=== PATIENT | female | born 1980 | race African-American/Black ===

== ENCOUNTER 2019-03-23 16:34 | Emergency (ER) | payer MEDICAID ==
[2019-03-23] MEDS ORDERED: NA CHLORIDE 0.9% 1,000 ML ONE (17:06)
[2019-03-23 17:08] LABS: Urine Blood 2+ (NEG); Urine Glucose NEGATIVE (NEG); Urine Protein 2+ (NEG); Urine Specific Gravity 1.025 (1.005-1.030); Urine pH 5.5 (5.0-7.0)
--- NOTE | 2019-03-23 17:13 | RAD REPORT ---
EXAM DESCRIPTION: RAD - Chest Single View - 03/23/2019 5:06 pm CLINICAL HISTORY: Cough, shortness of breath COMPARISON: None. TECHNIQUE: AP portable chest image was obtained 1706 hours . FINDINGS: Lungs are clear. Heart and vasculature are normal. No measurable pleural effusion and no p neumothorax. No acute bony abnormality seen. No acute aortic findings suspected. IMPRESSION: No acute cardiopulmonary process.
[2019-03-23 17:32] LABS: Absolute Lymphocytes (CBC) 0.5 K/uL (0.7-4.9); Basophils % 0.3 % (0-1.3); Hematocrit 35.6 % (36.0-45.0); Lymphocytes % 2.8 % (15.3-44.8); MPV 8.7 fL (7.6-11.3); RBC Red Blood Cell Count 3.84 M/uL (3.86-4.86)
[2019-03-23 17:36] LABS: Protime INR 1.7
[2019-03-23 17:57] LABS: ALT/SGPT 32 U/L (12-78); AST/SGOT 20 U/L (15-37); Albumin 3.6 g/dL (3.4-5.0); Alkaline Phosphatase 81 U/L (45-117); BUN Blood Urea Nitrogen 14 mg/dL (7-18); Bicarbonate 22 mmol/L (21-32); Bilirubin Direct 0.5 mg/dL (0-0.2); Bilirubin Total 1.3 mg/dL (0.2-1.0); Glucose Level 99 mg/dL (74-106); Magnesium 2.1 mg/dL (1.8-2.4); NT PRO-BNP 20 pg/mL (<125); Potassium 3.4 mmol/L (3.5-5.1); Protein, Total 8.5 g/dL (6.4-8.2); Sodium Level 139 mmol/L (136-145); Troponin (Emerg Dept Use Only) < 0.02 ng/mL (0.0-0.045)
[2019-03-23 18:02] LABS: Blood Morphology Comment NOT SEEN (NOT SEEN); Platelet Estimate ADEQ; Urine White Blood Cell Casts OK
--- NOTE | 2019-03-23 18:47 | RAD REPORT ---
EXAM DESCRIPTION: CT - Soft Tissue Neck W/Contr - 03/23/2019 6:36 pm CLINICAL HISTORY: Syncope, trauma, swelling left neck and chin COMPARISON: None TECHNIQUE: During dynamic enhancement using 100 milliliters nonionic IV contrast, axial 5 millimeter thick images of the neck were obtained. All CT scans are performed using dose optimization technique as appropriate and may include automated exposure control or mA/KV adjustment according to patient size. FINDINGS: Intracranial portion the examination is unremarkable. No globe or orbital content abnormal ity. Mastoid air cells and paranasal sinuses are clear. No pharyngeal mucosal mass or asymmetry. Parapharyngeal fat is normal. No soft palate, tonsil or tong ue base abnormality seen. Epiglottis and laryngeal structures are normal. Thyroid, submandibular and parotid gland tissues are unremarkable. Edematous/ inflammatory stranding is seen in the submental fatty tissues. In the left-sided floor the mouth musculature there are 2 low-density collections present. The more inferior collection is 17 x 6 mm in size. The more superior and central collection is 19 x 7 mm. Neither collection is closely ap proximated to the mandible. Small abscesses are most likely. There are several reactive lymph nodes i n this area. Elsewhere in the neck no significant lymphadenopathy. No additional mass seen. No acute or destructiv e bone process. There is a lucency along the posterior left molars of the mandible. Dental decay is e vident along the surface of these teeth. The floor the mouth findings are relatively distant from thi s area but could potentially be inferiorly tracking infections. IMPRESSION: Two abscesses are seen in the soft tissues along the left-side floor the mouth as detail ed. Dental decay is seen in the posterior left-side mandible and associated teeth. There is not specific direct communication from the dental decay to the abscesses though inferiorly directed inflammatory t racks would be possible.
[2019-03-23] MEDS ORDERED: dexAMETHasone 10 MG/ML VIAL ONE (19:02)
[2019-03-23] MEDS ORDERED: CEFTRIAXONE/SWI 1gm 1 GM/10 ML SYR ONE (19:02)
[2019-03-23] MEDS ORDERED: NS KCL 20MEQ 1,000 ML IV ONE (19:02)
[2019-03-23] MEDS ORDERED: CLINDAMYCIN 900MG/D5W 900 MG/50 ML IVPB IV ONE (19:02)
--- NOTE | 2019-03-23 19:53 | ER ---
Nurse's Notes [facility] Name: Suzy Barrera Age: 38 yrs Sex: Female : 1980 Arrival Date: 03/23/2019 Time: 16:42 Bed 19 Private MD: Diagnosis: Dental caries;Cutaneous abscess of face-submental;Fever, unspecified;Elevated white blood cell count Presentation: 03/23 16:42 Presenting complaint: EMS states: EMS toned out for possible anaphylaxis, pt had ph syncopal episode witnessed by neighbors who reported that pt had swelling to neck/chin area, pt responsive upon EMS arrival, reported that chin/neck swelling was related to a dental problem, seen by dentist Friday and prescribed Clindamycin but has not taken a dose, BGL 45, pt states that she has not eaten in a few days because of dental pain, denies hx of allergic reaction, also denies fever or SOB. Transition of care: patient was not received from another setting of care. Onset of symptoms was March 23, 2019. Risk Assessment: Do you want to hurt yourself or someone else? Patient reports no desire to harm self or others. Initial Sepsis Screen: Does the patient meet any 2 criteria? No. Patient's initial sepsis screen is negative. Does the patient have a suspected source of infection? No. Patient's initial sepsis screen is negative. Care prior to arrival: Glucose check: 45. 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 - Social history:: Smoking status: Patient/guardian denies using tobacco. - Ebola Screening: : No symptoms or risks identified at this time. Screenin:16 Abuse screen: Denies threats or abuse. Denies injuries from another. Nutritional ph screening: No deficits noted. Tuberculosis screening: No symptoms or risk factors identified. Fall Risk Fall in past 12 months (25 points). No secondary diagnosis (0 pts). IV access (20 points). Ambulatory Aid- None/Bed Rest/Nurse Assist (0 pts). Gait- Weak (10 pts.). Mental Status- Overestimates/Forgets Limitations (15 pts.). Total Eid Fall Scale indicates High Risk Score (45 or more points). Fall prevention measures have been instituted. Side Rails Up X 2 Placed Close to Nursing Station As available patient and family educated on Fall Prevention Program and Strategies. Assessment: 17:00 General: Appears in no apparent distress. uncomfortable, slender, well groomed, ph Behavior is calm, cooperative, appropriate for age. Pain: Complains of pain in mouth. Neuro: Level of Consciousness is awake, alert, obeys commands, Oriented to person, place, time, situation, Reports dizziness, a syncopal episode Denies blurred vision headache. Cardiovascular: Reports fatigue, lightheadedness, syncope, Denies chest pain, nausea, shortness of breath, Rhythm is sinus tachycardia. Respiratory: Airway is patent Respiratory effort is even, unlabored, Respiratory pattern is regular, symmetrical. GI: Patient currently denies abdominal pain, diarrhea, nausea, vomiting. EENT: Poor dentition noted. Derm: Skin is intact, Skin is pink, warm \T\ dry. Musculoskeletal: Swelling present in submental area. 18:00 Reassessment: Patient appears in no apparent distress at this time. Patient and/or ph family updated on plan of care and expected duration. Pain level reassessed. Patient is alert, oriented x 3, equal unlabored respirations, skin warm/dry/pink. 19:15 Reassessment: Patient appears in no apparent distress at this time. Patient and/or jb4 family updated on plan of care and expected duration. Pain level reassessed. Patient is alert, oriented x 3, equal unlabored respirations, skin warm/dry/pink. General: Appears in no apparent distress. comfortable, Behavior is calm, cooperative, appropriate for age. Neuro: Level of Consciousness is awake, alert, obeys commands, Oriented to person, place, time, situation. Cardiovascular: Patient's skin is warm and dry. Respiratory: Airway is patent Respiratory effort is even, unlabored, Respiratory pattern is regular, symmetrical. GI: No signs and/or symptoms were reported involving the gastrointestinal system. EENT: Poor dentition noted. Derm: Skin is intact, Skin is dry, Skin is normal, Skin temperature is warm. Musculoskeletal: Swelling present in chin, right jaw and left jaw. 20:15 Reassessment: Patient appears in no apparent distress at this time. Patient and/or jb4 family updated on plan of care and expected duration. Pain level reassessed. Patient is alert, oriented x 3, equal unlabored respirations, skin warm/dry/pink. Consent form for transfer signed. 21:49 Reassessment: Patient appears in no apparent distress at this time. Patient and/or jb4 family updated on plan of care and expected duration. Pain level reassessed. Patient is alert, oriented x 3, equal unlabored respirations, skin warm/dry/pink. Pt transported out of ED with EMS, belongings with pt, pt verbalized understanding for need for transfer, IV fluid discontinued per Dr. Rojas. Vital Signs: 16:48 BP 121 / 69; Pulse 113; Resp 20; Temp 99.7(O); Pulse Ox 98% on R/A; Weight 65.77 kg; ph 18:00 BP 108 / 64; Pulse 107; Resp 18; Pulse Ox 98% on R/A; ph 20:15 BP 107 / 55; Pulse 90; Resp 19; Temp 99.3(O); Pulse Ox 100% on R/A; jb4 21:45 BP 107 / 68; Pulse 89; Resp 23; Pulse Ox 98% on R/A; jb4 ED Course: 16:42 Patient arrived in ED. ph 16:44 Thien Rojas MD is Attending Physician. imelda 16:48 Triage completed. ph 16:54 Arm band placed on. ph 17:00 Tameka Islas, RN is Primary Nurse. ph 17:00 Patient has correct armband on for positive identification. Placed in gown. Bed in low ph position. Call light in reach. Side rails up X2. monitoring tech on. Pulse ox on. NIBP on. Door closed. Noise minimized. Warm blanket given. Head of bed elevated. 17:07 XRAY Chest (1 view) In Process Unspecified. EDMS 17:27 Initial lab(s) drawn, by me, sent to lab. Inserted saline lock: 20 gauge in left em1 antecubital area, using aseptic technique. Blood collected. 18:35 CT Soft Tissue Neck W/contr In Process Unspecified. EDMS 19:27 Primary Nurse role handed off by Tameka Islas, RN jb4 19:27 Markos Phillips, RN is Primary Nurse. jb4 21:52 No provider procedures requiring assistance completed. Patient transferred, IV remains jb4 in place. Administered Medications: 17:50 Drug: NS 0.9% 1000 ml Route: IV; Rate: 1 bolus; Site: left antecubital; ph 20:00 Follow up: Response: No adverse reaction; IV Status: Completed infusion; IV Intake: jb4 1000ml 19:15 Drug: Decadron - Dexamethasone 10 mg Route: IVP; Site: left antecubital; ph 20:18 Follow up: Response: No adverse reaction jb4 19:17 Drug: Rocephin 1 grams Route: IV; Rate: per protocol; Site: left antecubital; ph 19:19 Follow up: Response: No adverse reaction; IV Status: Completed infusion; IV Intake: [id number] 19:20 Drug: Clindamycin 900 mg Route: IVPB; Infused Over: 30 mins; Site: left antecubital; ph 19:50 Follow up: Response: No adverse reaction; IV Status: Completed infusion; IV Intake: [id number] 19:24 Drug: NS 0.9% with KCl 20 mEq/L 1000 ml Route: IV; Rate: 125 ml/hr; Site: left ph antecubital; 21:53 Follow up: Response: No adverse reaction; IV Status: Order to discontinue infusion jb4 Point of Care Testing: Blood Glucose: 16:48 Blood Glucose: 85 mg/dL; ph Ranges: Intake: 19:19 IV: 10ml; Total: 10ml. jb4 19:50 IV: 50ml; Total: 60ml. jb4 20:00 IV: 1000ml; Total: 1060ml. jb4 Outcome: 19:51 ER care complete, transfer ordered by MD. segura 21:52 Transferred by ground EMS to [facility], Transfer form jb4 completed. 21:52 Condition: stable 21:52 Discharge instructions given to patient, Instructed on the need for transfer, Demonstrated understanding of instructions. 21:54 Patient left the ED. jb4 Signatures: Dispatcher [employer] EDThien Arambula MD MD cha Martinez, Eric em1 Tameka Islas RN RN Markos Escalona RN RN jb4 Corrections: (The following items were deleted from the chart) 20:18 07:50 NS 0.9% 1000 ml IV at 1 bolus in left antecubital ph ph
--- NOTE | 2019-03-23 19:53 | EDPHYS ---
Physician Documentation [facility] Name: Suzy Barrera Age: 38 yrs Sex: Female : 1980 Arrival Date: 03/23/2019 Time: 16:42 Bed 19 Private MD: ED Physician Thien Rojas HPI: 03/23 18:03 This 38 yrs old Black Female presents to ER via EMS with complaints of Syncope. imelda 18:03 The patient has experienced near-syncope. Onset: The symptoms/episode began/occurred imelda just prior to arrival. 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 - Social history:: Smoking status: Patient/guardian denies using tobacco. - Ebola Screening: : No symptoms or risks identified at this time. ROS: 18:05 Constitutional: Negative for fever, chills, and weight loss, Eyes: Negative for injury, imelda pain, redness, and discharge, Neck: Negative for injury, pain, and swelling, Cardiovascular: Negative for chest pain, palpitations, and edema, Respiratory: Negative for shortness of breath, cough, wheezing, and pleuritic chest pain, Abdomen/GI: Negative for abdominal pain, nausea, vomiting, diarrhea, and constipation, Back: Negative for injury and pain, : Negative for injury, bleeding, discharge, and swelling, MS/Extremity: Negative for injury and deformity, Skin: Negative for injury, rash, and discoloration, Psych: Negative for depression, anxiety, suicide ideation, homicidal ideation, and hallucinations, Allergy/Immunology: Negative for hives, rash, and allergies, Endocrine: Negative for neck swelling, polydipsia, polyuria, polyphagia, and marked weight changes. 18:05 Constitutional: Positive for body aches, fever. 18:05 ENT: Positive for sore throat, Teeth pain 18:05 Neck: Positive for mass, pain with movement, pain at rest, swelling, tenderness. 18:05 Neuro: Positive for near syncope, weakness. Exam: 18:05 Constitutional: This is a well developed, well nourished patient who is awake, alert, imelda and in no acute distress. Head/Face: Normocephalic, atraumatic. Eyes: Pupils equal round and reactive to light, extra-ocular motions intact. Lids and lashes normal. Conjunctiva and sclera are non-icteric and not injected. Cornea within normal limits. Periorbital areas with no swelling, redness, or edema. Neck: Trachea midline, no thyromegaly or masses palpated, and no cervical lymphadenopathy. Supple, full range of motion without nuchal rigidity, or vertebral point tenderness. No Meningismus. Chest/axilla: Normal chest wall appearance and motion. Nontender with no deformity. No lesions are appreciated. Cardiovascular: Regular rate and rhythm with a normal S1 and S2. No gallops, murmurs, or rubs. Normal PMI, no JVD. No pulse deficits. Respiratory: Lungs have equal breath sounds bilaterally, clear to auscultation and percussion. No rales, rhonchi or wheezes noted. No increased work of breathing, no retractions or nasal flaring. Abdomen/GI: Soft, non-tender, with normal bowel sounds. No distension or tympany. No guarding or rebound. No evidence of tenderness throughout. Back: No spinal tenderness. No costovertebral tenderness. Full range of motion. Skin: Warm, dry with normal turgor. Normal color with no rashes, no lesions, and no evidence of cellulitis. MS/ Extremity: Pulses equal, no cyanosis. Neurovascular intact. Full, normal range of motion. Neuro: Awake and alert, GCS 15, oriented to person, place, time, and situation. Cranial nerves II-XII grossly intact. Motor strength 5/5 in all extremities. Sensory grossly intact. Cerebellar exam normal. Normal gait. Psych: Awake, alert, with orientation to person, place and time. Behavior, mood, and affect are within normal limits. 18:05 ENT: Mouth: Oral mucosa: moist, Gums: noted to have cellulitis, reddened, Tongue: is normal, abscess, is not appreciated, Posterior pharynx: Tonsils: are normal in appearance, no enlargement, no erythema, no exudate, no ulcerations, Uvula: normal, swelling, is not appreciated, erythema, is not appreciated, Dental exam: cellulitis, that is mild, dental caries, gum swelling. Vital Signs: 16:48 BP 121 / 69; Pulse 113; Resp 20; Temp 99.7(O); Pulse Ox 98% on R/A; Weight 65.77 kg; ph 18:00 BP 108 / 64; Pulse 107; Resp 18; Pulse Ox 98% on R/A; ph 20:15 BP 107 / 55; Pulse 90; Resp 19; Temp 99.3(O); Pulse Ox 100% on R/A; jb4 21:45 BP 107 / 68; Pulse 89; Resp 23; Pulse Ox 98% on R/A; jb4 MDM: 16:44 Patient medically screened. [facility] 18:08 Data reviewed: vital signs, nurses notes, lab test result(s), EKG, radiologic studies, [facility] CT scan, plain films. 03/23 16:47 Order name: Basic Metabolic Panel; Complete Time: 17:57 [facility] 03/23 16:47 Order name: CBC with Diff; Complete Time: 18:07 [facility] 03/23 16:47 Order name: LFT's; Complete Time: 17:57 [facility] 03/23 16:47 Order name: Magnesium; Complete Time: 17:57 [facility] 03/23 16:47 Order name: NT PRO-BNP; Complete Time: 17:57 [facility] 03/23 16:47 Order name: PT-INR; Complete Time: 17:57 [facility] 03/23 16:47 Order name: Troponin (emerg Dept Use Only); Complete Time: 17:57 [facility] 03/23 16:47 Order name: XRAY Chest (1 view); Complete Time: 17:57 [facility] 03/23 16:47 Order name: Urine Culture [facility] 03/23 17:05 Order name: Urine Dipstick--Ancillary (enter results); Complete Time: 17:57 03/23 17:05 Order name: Urine --Ancillary (enter results); Complete Time: 17:57 03/23 17:37 Order name: CBC Smear Scan; Complete Time: 18:07 [facility] 03/23 17:38 Order name: Glucose, Ancillary Testing; Complete Time: 17:57 [facility]TX 03/23 18:02 Order name: CT Soft Tissue Neck W/contr; Complete Time: 19:17 [facility] 03/23 16:47 Order name: EKG; Complete Time: 16:52 [facility] 03/23 16:47 Order name: Cardiac monitoring; Complete Time: 17:01 [facility] 03/23 16:47 Order name: EKG - Nurse/Tech; Complete Time: 17:01 [facility] 03/23 16:47 Order name: IV Saline Lock; Complete Time: 17:29 [facility] 03/23 16:47 Order name: Labs collected and sent; Complete Time: 17:29 [facility] 03/23 16:47 Order name: O2 Per Protocol; Complete Time: 17: [facility] 03/23 16:47 Order name: O2 Sat Monitoring; Complete Time: 17: [facility] 03/23 16:47 Order name: Urine Dipstick-Ancillary (obtain specimen); Complete Time: 17: [facility] 03/23 16:47 Order name: Urine Test (obtain specimen); Complete Time: 17:01 [facility] Administered Medications: 17:50 Drug: NS 0.9% 1000 ml Route: IV; Rate: 1 bolus; Site: left antecubital; ph 20:00 Follow up: Response: No adverse reaction; IV Status: Completed infusion; IV Intake: jb4 1000ml 19:15 Drug: Decadron - Dexamethasone 10 mg Route: IVP; Site: left antecubital; ph 20:18 Follow up: Response: No adverse reaction jb4 19:17 Drug: Rocephin 1 grams Route: IV; Rate: per protocol; Site: left antecubital; ph 19:19 Follow up: Response: No adverse reaction; IV Status: Completed infusion; IV Intake: [id number] 19:20 Drug: Clindamycin 900 mg Route: IVPB; Infused Over: 30 mins; Site: left antecubital; ph 19:50 Follow up: Response: No adverse reaction; IV Status: Completed infusion; IV Intake: [id number] 19:24 Drug: NS 0.9% with KCl 20 mEq/L 1000 ml Route: IV; Rate: 125 ml/hr; Site: left ph antecubital; 21:53 Follow up: Response: No adverse reaction; IV Status: Order to discontinue infusion jb4 Point of Care Testing: Blood Glucose: 16:48 Blood Glucose: 85 mg/dL; ph Ranges: Critical Glucose Levels:Adult <50 mg/dl or >400 mg/dl <40 mg/dl or >180 mg/dl Disposition: 03/23/19 19:51 Transfer ordered to [facility]. Diagnosis are Dental caries, Cutaneous abscess of face - submental, Fever, unspecified, Elevated white blood cell count. - Reason for transfer: Higher level of care. - [facility]. - Condition is Stable. - Problem is new. - Symptoms have improved. Signatures: Dispatcher [employer] Thien Clark MD MD cha Hall, Patricia, RN RN Markos Escalona RN RN jb4 Corrections: (The following items were deleted from the chart) 21:54 19:51 03/23/2019 19:51 Transfer ordered to [facility]. Diagnosis is Dental caries; jb4 Cutaneous abscess of face - submental; Fever, unspecified; Elevated white blood cell count. Reason for transfer: Higher level of care. Accepting physician is dr [facility]. Condition is Stable. Problem is new. Symptoms have improved. imelda
--- NOTE | 2019-03-24 09:21 | EKG ---
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
== END 2019-03-23 21:54 | disposition short-term general hospital (02) ==
LOC: ER 16:34
DX: K02.9 Dental caries, unspecified (principal); L02.01 Cutaneous abscess of face; D72.829 Elevated white blood cell count, unspecified
CPT/HCPCS: 93005; 87088; 85025; 87086; 80048; 36415; 83735; 81025; 85610; 82962; 80076; 81003; 84484; 83880; 70491; 71045; Q9967; J1100; J0696; J7030; 87077; 87186; 96361; 96365; 96375; 99285